=== PATIENT | female | born 1995 | race Caucasian/White ===

== ENCOUNTER 2020-12-11 12:44 | Emergency (ER) | payer MEDICAID, SELFPAY ==
[2020-12-11] VITALS (7 sets, daily range): BP systolic 109–151; BP diastolic 71–98; PULSE 96–120; RESP 17–22; TEMP 36.3–37.1; O2SAT 96–99; BMI 20.9
--- NOTE | 2020-12-11 12:50 | PC.NURSE ---
Pt arrived via ems, cooperative w/ changeover.
--- NOTE | 2020-12-11 13:26 | ED.PSYCH ---
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 Patient states she is an alcoholic MD complaint: feels depressed, anxiety and alcohol abuse Onset (ago): week(s) Duration: constant History of same: Yes Relieving factors: none Exacerbating factors: other (not taking her medications) Context: recent alcohol abuse and not taking psychiatric medications Associated psychiatric symptoms: depression and racing thoughts Associated symptoms: insomnia Treatments prior to arrival: none Related Data Allergies Allergy/AdvReac Type Severity Reaction Status Date / Time No Known Allergies Allergy Verified 12/11/20 13:29 Review of Systems Constitutional: Constitutional: Reports no additional constitutional complaints Eyes: Eyes: Reports no additional eye complaints ENT: Denies dizziness Cardiovascular: Cardiovascular: Reports no additional cardiovascular complaints Respiratory: Respiratory: Reports as per HPI Gastrointestinal: Gastrointestinal: Reports no additional gastrointestinal complaints Genitourinary: Genitourinary: Reports no additional female genitourinary complaints Musculoskeletal: Musculoskeletal: Reports no additional musculoskeletal complaints Integumentary/Breasts: Skin/Breast: Denies rash Neurologic: Reports system reviewed and no additional complaints, except as documented, Denies dizziness and Denies Sensory deficit (Neuro) Psychiatric: Psychiatric: Denies anxiety PMF Past Medical History Medical History (Updated 12/11/20 @ 13:41 by Maryan Bermudez) No known health problems Social History Social History Alcohol intake: current Smoking Status: Current every day smoker Use of substances other than those prescribed or required for medical reasons: Unknown Advance Directives: No Advance Directives Information Provided: No Physical Exam Vital Signs: Vital Signs: Last Vital Signs Temp 98.1 F 12/11/20 13:26 Pulse 107 H 12/11/20 13:26 Resp 20 12/11/20 14:00 BP 143/98 H 12/11/20 13:26 Pulse Ox 96 12/11/20 13:26 Body Mass Index 20.9 Const: Other: female appearing disheveled and anxious Nutritional Appearance: average body habitus Orientation/consciousness: oriented to person and patient oriented x3 Limitations: no limitations HENMT: Head: Yes normal to inspection Ears: external ears normal General nose exam: Normal external nose present Mouth: Normal oral and palatal mucosa present and oropharynx normal Throat: Yes posterior oropharynx normal Eyes: General: appearance normal, both eyes and all related structures Neck: Other: supple Neck: Yes normal visual inspection Chest: Chest palpation & inspection: normal inspection of the chest Resp: Auscultation: clear to auscultation bilaterally Cardio: Jugular venous distension: no JVD Rate: regular rate Rhythm: regular rhythm Heart sounds: S1 normal heart sound present and S2 normal heart sound present GI: Inspection: Yes normal to inspection Palpation (GI): Soft to palpation, nontender and No hepatosplenomegaly present Auscultation: normal bowel sounds : General: Yes no CVA tenderness Back/Spine/Pelvis: Back: no CVA tenderness Skin: General skin exam: no rashes or lesions noted Neuro: General: oriented to person and patient oriented x3 Cranial nerves: Yes CN's II-XII intact bilaterally Motor exam (neuro): 5/5 motor strength present throughout Sensory Exam: No Sensory deficit (Neuro) Extrem: General: Yes normal to inspection Psych: Appearance: grossly normal Course Course Course Narrative: Patient with CIWA of 6 will give ativan as patient is severely anxious Reevaluation(s) Reevaluation #1: Patient placed in physician observation at 4:00 pm The indication for observation is that the patient needs more time to see if his depression improves or he will need to be admitted. At this time the patient is well developed well nourished, lungs clear, CV RRR, abd nontender, neuro is intact. Patient in mild withdrawal and needs more time to be evaluated for withdrawal as well MDM - Psych Lab Data Result diagrams: 12/11/20 14:02 12/11/20 14:02 Labs: Lab Results 12/11/20 12/11/20 12/11/20 Range/Units 14:02 14:02 14:02 WBC 8.5 (4.8-10.8) X10*3/uL RBC 4.90 (4.20-5.50) X10*6/uL Hgb 15.0 (12.0-16.0) g/dl Hct 44.4 (37-47) % MCV 90.6 (80-98) fL MCH 30.6 (27.0-33.0) pg MCHC 33.8 (31.0-35.0) g/dl RDW 13.0 (11.0-16.0) % Plt Count 240 (160-400) X10*3/uL MPV 10.2 (9.4-12.3) fL Immature Gran % (Auto) 0.2 (0.0-0.4) % Neut % (Auto) 71.8 (45-73) % Lymph % (Auto) 19.2 L (20-40) % [place] % (Auto) 8.2 (2-11) % Eos % (Auto) 0.2 (0-4) % Baso % (Auto) 0.4 (0-2) % Lymph # (Auto) 1.6 (1.2-4.9) X10*3/uL [place] # (Auto) 0.7 (0.1-1.2) X10*3/uL Eos # (Auto) 0.0 (0.0-0.4) X10*3/uL Baso # (Auto) 0.0 (0.0-0.2) X10*3/uL Abs Immat Gran (auto) 0.02 (0.00-0.03) X10*3/uL Absolute Neuts (auto) 6.1 (2.0-8.3) X10*3/uL Absolute Nucleated RBC 0.000 (0.0-0.012) X10*3/uL Nucleated RBC % (auto) 0.0 (0.0-0.2) /100WBC Sodium 139 (135-145) mmol/L Potassium 3.9 (3.3-5.1) mmol/L Chloride 101 (96-108) mmol/L Carbon Dioxide 25 (22-29) mmol/L Anion Gap 17 (12-20) BUN 4 L (9-16) mg/dL Creatinine 0.70 (0.5-1.4) mg/dL Estim Creat Clear Calc 113.3 Estimated GFR > 60 Random Glucose 112 (60-115) mg/dL Calcium 9.6 (8.4-10.2) mg/dL Total Bilirubin 0.6 (0.0-1.0) mg/dL AST 51 H (5-31) U/L ALT 39 H (0-31) U/L Alkaline Phosphatase 87 (39-117) U/L Total Protein 8.2 H (6.5-8.0) g/dL Albumin 4.9 (3.5-5.0) g/dL Urine Test (NEGATIVE) Salicylates < 5.0 L (15-30) mg/dL Urine Opiates Screen (Not Detect) Acetaminophen < 1 (<30) mcg/mL Ur Barbiturates Screen (Not Detect) Ur Phencyclidine Scrn (Not Detect) Ur Amphetamines Screen (Not Detect) U Benzodiazepines Scrn (Not Detect) Urine Cocaine Screen (Not Detect) U Marijuana (THC) Screen (Not Detect) Ethyl Alcohol mg/dL COVID-19 ([facility]) Negative (Negative) COVID-19 Clin Com See Note 12/11/20 12/11/20 12/11/20 Range/Units 14:02 14:12 14:12 WBC (4.8-10.8) X10*3/uL RBC (4.20-5.50) X10*6/uL Hgb (12.0-16.0) g/dl Hct (37-47) % MCV (80-98) fL MCH (27.0-33.0) pg MCHC (31.0-35.0) g/dl RDW (11.0-16.0) % Plt Count (160-400) X10*3/uL MPV (9.4-12.3) fL Immature Gran % (Auto) (0.0-0.4) % Neut % (Auto) (45-73) % Lymph % (Auto) (20-40) % [place] % (Auto) (2-11) % Eos % (Auto) (0-4) % Baso % (Auto) (0-2) % Lymph # (Auto) (1.2-4.9) X10*3/uL [place] # (Auto) (0.1-1.2) X10*3/uL Eos # (Auto) (0.0-0.4) X10*3/uL Baso # (Auto) (0.0-0.2) X10*3/uL Abs Immat Gran (auto) (0.00-0.03) X10*3/uL Absolute Neuts (auto) (2.0-8.3) X10*3/uL Absolute Nucleated RBC (0.0-0.012) X10*3/uL Nucleated RBC % (auto) (0.0-0.2) /100WBC Sodium (135-145) mmol/L Potassium (3.3-5.1) mmol/L Chloride (96-108) mmol/L Carbon Dioxide (22-29) mmol/L Anion Gap (12-20) BUN (9-16) mg/dL Creatinine (0.5-1.4) mg/dL Estim Creat Clear Calc Estimated GFR Random Glucose (60-115) mg/dL Calcium (8.4-10.2) mg/dL Total Bilirubin (0.0-1.0) mg/dL AST (5-31) U/L ALT (0-31) U/L Alkaline Phosphatase (39-117) U/L Total Protein (6.5-8.0) g/dL Albumin (3.5-5.0) g/dL Urine Test NEGATIVE (NEGATIVE) Salicylates (15-30) mg/dL Urine Opiates Screen Not Detected (Not Detect) Acetaminophen (<30) mcg/mL Ur Barbiturates Screen Not Detected (Not Detect) Ur Phencyclidine Scrn Not Detected (Not Detect) Ur Amphetamines Screen Not Detected (Not Detect) U Benzodiazepines Scrn Not Detected (Not Detect) Urine Cocaine Screen Not Detected (Not Detect) U Marijuana (THC) Screen POSITIVE H (Not Detect) Ethyl Alcohol 138 mg/dL COVID-19 ([facility]) (Negative) COVID-19 Clin Com
--- NOTE | 2020-12-11 13:49 | PC.NURSE ---
Pt alert, cooperative w/ changeover. Pt reporting +abd pain, evaluated by Dr. Colindres for same. Pt reports she uses etoh daily and heavily, and is concerned that she may begin to withdraw. Pt currently reporting 'shakiness' as a symptom of withdrawal, but also reports she has not eaten in some time. Pt offered sandwiches but states that she does not eat meat- given yogurt which she is currently eating.
[2020-12-11 14:10] LABS: MANUAL DIFF FLAG NO
[2020-12-11] MEDS: LORazepam 1 MG TABLET PO (14:11)
[2020-12-11 14:12] LABS: Basophils Percent Auto 0.4 % (0-2); Eosinophils Percent Auto 0.2 % (0-4); Hematocrit 44.4 % (37-47); Imm Gran Abs Auto 0.02 X10*3/uL (0.00-0.03); Imm Gran Pct Auto 0.2 % (0.0-0.4); Lymphocytes Absolute Auto 1.6 X10*3/uL (1.2-4.9); Lymphocytes Percent Auto 19.2 % (20-40); Mean Corpuscular HGB Conc 33.8 g/dl (31.0-35.0); Mean Corpuscular Hemoglobin 30.6 pg (27.0-33.0); Mean Corpuscular Volume 90.6 fL (80-98); Mean Platelet Volume 10.2 fL (9.4-12.3); Monocytes Absolute Auto 0.7 X10*3/uL (0.1-1.2); Monocytes Percent Auto 8.2 % (2-11); Neutrophils Absolute Auto 6.1 X10*3/uL (2.0-8.3); Neutrophils Percent Auto 71.8 % (45-73); Platelet Count 240 X10*3/uL (160-400); White Blood Count 8.5 X10*3/uL (4.8-10.8)
[2020-12-11 14:28] LABS: COVID-19 Test Negative (Negative); IDNOW Serial# 9DD0AD1C
[2020-12-11 14:41] LABS: Ethanol 138 mg/dL
[2020-12-11 14:41] LABS: UPreg QC Valid YES; Urine Pregnancy NEGATIVE (NEGATIVE)
[2020-12-11 14:45] LABS: Acetaminophen LAB < 1 mcg/mL (<30); Alanine Aminotransferase 39 U/L (0-31); Albumin Level 4.9 g/dL (3.5-5.0); Alkaline Phosphatase 87 U/L (39-117); Anion Gap 17 (12-20); Aspartate Amino Transferase 51 U/L (5-31); Bilirubin Total 0.6 mg/dL (0.0-1.0); Blood Urea Nitrogen 4 mg/dL (9-16); Calcium 9.6 mg/dL (8.4-10.2); Carbon Dioxide 25 mmol/L (22-29); Chloride 101 mmol/L (96-108); Creatinine Clr Calc Pharmacy 113.3; Estimated Glomerular Filt Rate > 60; Glucose Random 112 mg/dL (60-115); Potassium 3.9 mmol/L (3.3-5.1); Salicylate < 5.0 mg/dL (15-30); Sodium 139 mmol/L (135-145); Total Protein 8.2 g/dL (6.5-8.0)
--- NOTE | 2020-12-11 15:05 | PC.NURSE ---
Father in w/ pt. Pt alert, reports only mild effect from ativan but appears less anxious. Crisis process explained to both pt and father. Pt cooperative w/ labs.
[2020-12-11 15:12] LABS: Amphetamine Screen Urine Not Detected (Not Detect); Barbiturates, Urine Not Detected (Not Detect); Benzodiazepines Screen Urine Not Detected (Not Detect); Cannabinoid Screen Urine POSITIVE (Not Detect); Cocaine Screen Urine Not Detected (Not Detect); Opiate Screen Urine Not Detected (Not Detect); Phencyclidine Screen Urine Not Detected (Not Detect)
--- NOTE | 2020-12-11 16:40 | PC.NURSE ---
Reviewed labs w/ Dr. Porter. Pt currently sleeping, resp unlabored.
[2020-12-11] MEDS: LORazepam 0.5 MG TABLET 1 MG PO (18:31)
--- NOTE | 2020-12-11 18:39 | PC.NURSE ---
VAEH Valdes aware of current CIWA
[2020-12-12 01:57] VITALS: BP 141/94; PULSE 100; RESP 18; TEMP 36; O2SAT 97
--- NOTE | 2020-12-12 02:22 | PC.NURSE ---
Patient just woke up for bathroom use, appears tremulous, VSS with HR 100, scored 8 on CIWA, administered Ativan 1 mg as ordered, will continue to monitor.
--- NOTE | 2020-12-12 07:08 | PC.NURSE ---
Report recieved. PT currently sleeping, breakfast at bedside. Respirations even and unlabored, in no apparent distress. PT is inpatient bedsearch.
[2020-12-12] MEDS: LORazepam 0.5 MG TABLET 1 MG PO ×2 (08:47→16:04)
--- NOTE | 2020-12-12 08:52 | PC.NURSE ---
PT states she cannot urinate, reporting anxiety and generally not feeling well. Provider notified, UA ordered. PT medicated per EMAR.
[2020-12-12 09:01] VITALS: BP 125/85; PULSE 89; RESP 16; TEMP 36.8; O2SAT 99
[2020-12-12 09:39] LABS: Glucose Urine UA NEG (NEG); Leukocyte Esterase Urine NEG (NEG); Nitrite Urine NEG (NEG); Specific Gravity - Urine <= 1.005 (1.005-1.025); Urine Blood NEG (NEG); Urine Ketones NEG (NEG); Urine Protein NEG (NEG-TRACE)
[2020-12-12 09:40] LABS: Appearance Urine CLEAR; Color Urine YELLOW
== END 2020-12-12 17:34 ==
PROVIDERS: Physician Assistant Medical; Emergency Provider Emergency Medicine
DX: F22 Delusional disorders (principal); F10.230 Alcohol dependence with withdrawal, uncomplicated; Y90.6 Blood alcohol level of 120-199 mg/100 ml; G47.00 Insomnia, unspecified; F41.9 Anxiety disorder, unspecified; F32.9 Major depressive disorder, single episode, unspecified; Z91.14 Patient's other noncompliance with medication regimen; F17.200 Nicotine dependence, unspecified, uncomplicated; Z20.822 Contact with and (suspected) exposure to COVID-19
CPT/HCPCS: 36415; 80053; 80143; 80179; 80307; 80320; 81003; 81025; 85025; 87635; 99285

== ENCOUNTER 2022-12-23 14:49 | Outpatient (REF) | payer MEDICAID, SELFPAY ==
[2022-12-23 18:33] LABS: MANUAL DIFF FLAG NO
[2022-12-23 19:14] LABS: Iron 36 mcg/dL (30-160); Percent Iron Saturation 8 % (15-50); Total Iron Binding Capacity 430 mcg/dL (228-428); Unsaturated Iron Binding 394 ug/dL
[2022-12-23 19:28] LABS: Ferritin 13 ng/mL (10-122)
[2022-12-24 09:46] LABS: Basophils Percent Auto 0.3 % (0-2); Eosinophils Percent Auto 0.2 % (0-4); Hematocrit 43.4 % (37.0-47.0); Hemoglobin 13.9 g/dl (12.0-16.0); Imm Gran Abs Auto 0.02 X10*3/uL (0.00-0.03); Imm Gran Pct Auto 0.2 % (0.0-0.4); Lymphocytes Absolute Auto 1.9 X10*3/uL (1.2-4.9); Lymphocytes Percent Auto 21.2 % (20-40); Mean Corpuscular Hemoglobin 27.5 pg (27.0-33.0); Mean Corpuscular Volume 85.9 fL (80.0-98.0); Mean Platelet Volume 11.6 fL (9.4-12.3); Monocytes Absolute Auto 0.5 X10*3/uL (0.1-1.2); Monocytes Percent Auto 5.1 % (2-11); Neutrophils Absolute Auto 6.6 x10*3/uL (2.0-8.3); Platelet Count 272 X10*3/uL (160-400); Red Blood Count 5.05 X10*6/uL (4.20-5.50); Red Cell Distribution Width 12.7 % (11.0-16.0); White Blood Count 9.1 X10*3/uL (4.8-10.8)
== END 2022-12-23 14:50 | disposition home or self-care (01) ==
LOC: HO.MANLDS 14:49
PROVIDERS: Visit Provider Physician Assistant
DX: K92.0 Hematemesis (principal)
CPT/HCPCS: 36415; 82728; 83540; 85025

== ENCOUNTER 2023-02-11 15:34 | Outpatient (REF) | payer MEDICAID, SELFPAY | END 2023-02-11 15:35 | disposition home or self-care (01) | LOC: HO.MANLDS 15:34 | PROVIDERS: Visit Provider Physician Assistant | DX: Z13.89 Encounter for screening for other disorder (principal) ==

== ENCOUNTER 2023-02-12 16:15 | Outpatient (REF) | payer MEDICAID, SELFPAY ==
[2023-02-12 17:53] LABS: Vitamin D 25-OH Total 62.9 ng/mL (>30)
[2023-02-12 17:59] LABS: Vitamin B12 440 pg/mL (200-900)
[2023-02-13 05:05] LABS: Syphilis Screen Nonreactive (Nonreactive)
[2023-02-13 05:21] LABS: HBsAGNum1 0.35 S/CO (0.00-0.99); HIV AB/AG Nonreactive (Nonreactive); HIV Num 1 0.05 S/CO (0.00-0.99); Hepatitis B Surface Antigen Negative (Negative); ~Hepatitis C Antibody Nonreactive (Nonreactive)
== END 2023-02-12 16:16 | disposition home or self-care (01) ==
LOC: HO.LAB 16:15
PROVIDERS: Visit Provider Physician Assistant
DX: G62.9 Polyneuropathy, unspecified (principal); T78.1XXA Other adverse food reactions, not elsewhere classified, initial encounter; Z11.3 Encounter for screening for infections with a predominantly sexual mode of transmission
CPT/HCPCS: 36415; 82306; 82607; 86780; 86803; 87340; 87389